=== PATIENT | female | born 1995 | race Caucasian/White ===

== ENCOUNTER 2018-01-05 16:48 | Outpatient (CLI) | payer MEDICAID ==
[2018-01-05 19:24] LABS: ADD UMIC NO; UR ASCORBIC ACID 40 mg/dL (NEGATIVE); UR BILIRUBIN (Dip) NEGATIVE (NEGATIVE); UR BLOOD (Dip) NEGATIVE (NEGATIVE); UR CLARITY CLEAR (CLEAR); UR COLOR YELLOW (YELLOW); UR GLUCOSE (Dip) NEGATIVE (NEGATIVE); UR KETONES (Dip) 2+ mg/dL (NEGATIVE); UR LEUKOCYTE ESTERASE (Dip) NEGATIVE Leu/ul (NEGATIVE); UR NITRITE (Dip) NEGATIVE (NEGATIVE); UR TOTAL PROTEIN (Dip) NEGATIVE (NEGATIVE); UR UROBILINOGEN (Dip) NEGATIVE (NEGATIVE)
== END 2018-01-05 20:15 | disposition home or self-care (01) ==
LOC: OBT 16:48 → L-D 16:49 → OBT 20:15
DX: O36.8130 Decreased fetal movements, third trimester, not applicable or unspecified (principal); Z3A.33 33 weeks gestation of pregnancy
CPT/HCPCS: 76815; 76818; 81003

== ENCOUNTER 2018-02-16 16:59 | Inpatient (IN) | payer MEDICAID ==
[2018-02-16] MEDS ORDERED: BUTORPHANOL 1 MG INJ IV (17:30)
[2018-02-16] MEDS ORDERED: OXYTOCIN 30 UNITS/LR 500 ML IV ×2 (17:30)
[2018-02-16] MEDS ORDERED: CARBOPROST 250 MCG INJ IM (17:30)
[2018-02-16] MEDS ORDERED: MISOPROSTOL 200 MCG TAB PR (17:30)
[2018-02-16] MEDS ORDERED: BUTORPHANOL 2 MG INJ IV (17:30)
[2018-02-16] MEDS ORDERED: LIDOCAINE 1% (MPF) 30 ML INJ INJ (17:30)
[2018-02-16] MEDS ORDERED: IBUPROFEN 600 MG TAB PO (17:30)
[2018-02-16] MEDS: LACTATED RINGER'S 1,000 ML IV (17:54)
[2018-02-16 18:35] LABS: ADD MAN DIFF? NO
[2018-02-16 18:40] LABS: WHITE BLOOD COUNT 10.5 10^3/ul (4.8-10.8)
[2018-02-16 18:40] LABS: BASOPHILS % 0.3 % (0.0-2.0); EOSINOPHILS # 0.1 10^3/ul (0.0-0.5); EOSINOPHILS % 0.8 % (0.0-7.0); HEMATOCRIT 39.3 % (37.0-47.0); HEMOGLOBIN 12.9 g/dl (12.0-16.0); LYMPHOCYTES # 3.5 10^3/ul (0.8-2.9); LYMPHOCYTES % 33.3 % (15.0-51.0); MEAN CORPUSCULAR HEMOGLOBIN 25.8 pg (29.0-33.0); MEAN CORPUSCULAR HGB CONC 32.8 g/dl (32.0-37.0); MEAN CORPUSCULAR VOLUME 78.6 fl (82.0-101.0); MEAN PLATELET VOLUME 12.2 fl (7.4-10.4); MONOCYTE # 0.9 10^3/ul (0.3-0.9); MONOCYTES % 8.4 % (0.0-11.0); NEUTROPHILS % 56.7 % (39.0-77.0); PLATELET COUNT 283 10^3/UL (140-415); RED CELL DISTRIBUTION WIDTH 13.3 % (11.5-14.5)
[2018-02-16 19:05] LABS: INR 0.85; PROTIME 11.7 Sec (11.9-14.9); PT RATIO 0.9
[2018-02-16 19:06] LABS: PARTIAL THROMBOPLASTIN TIME 26.9 Sec (23.0-35.0)
[2018-02-16 19:21] LABS: GLUCOSE 112 mg/dl (70-220)
[2018-02-16 19:44] LABS: HEPATITIS B SURFACE ANTIGEN NEGATIVE (NEGATIVE)
[2018-02-16] MEDS: OXYTOCIN 30 UNITS/LR 500 ML IV (22:31)
[2018-02-17] MEDS: LACTATED RINGER'S 1,000 ML IV ×5 (01:07→22:38)
[2018-02-17] MEDS: DEXTROSE 5%-LR 1,000 ML IV ×4 (06:45→14:27)
[2018-02-17] MEDS ORDERED: FENTAnyl 2MCG/ML-ROPIV 0.2% 100 ML (13:53)
[2018-02-17 17:10] LABS: RAPID PLASMA REAGIN NONREACTIVE (NR)
[2018-02-17] MEDS: OXYTOCIN 30 UNITS/LR 500 ML IV (19:48)
[2018-02-17] MEDS: FENTAnyl 2MCG/ML-ROPIV 0.2% 100 ML BAG EPI (21:14)
[2018-02-17] MEDS ORDERED: NALOXONE (0.4 MG/ML) INJ IV (21:30)
[2018-02-18] MEDS: FENTAnyl 2MCG/ML-ROPIV 0.2% 100 ML BAG EPI (05:09)
[2018-02-18] MEDS: LACTATED RINGER'S 1,000 ML IV ×4 (06:45→23:39)
[2018-02-18] MEDS: DEXTROSE 5%-LR 1,000 ML IV ×2 (06:45→10:53)
[2018-02-18] MEDS: ONDANSETRON 4 MG INJ IV (07:29)
[2018-02-18] MEDS: METHYLERGONOVINE 0.2 MG INJ IM (08:17)
[2018-02-18] MEDS: OXYTOCIN 30 UNITS/LR 500 ML IV ×2 (08:24→12:01)
[2018-02-18] MEDS ORDERED: CEFAZOLIN 2 GM/50 ML (PMX) 50 ML IVPB (09:32)
[2018-02-18] MEDS ORDERED: ACETAMINOPHEN 325 MG TAB (09:32)
[2018-02-18] MEDS: CEFAZOLIN 2 GM/50 ML (PMX) 50 ML IVPB (09:35)
[2018-02-18] MEDS: ACETAMINOPHEN 325 MG TAB PO (09:35)
[2018-02-18] MEDS: OXYCODONE/ACETAMINOPHEN (5/325) TAB PO (10:15)
[2018-02-18] MEDS ORDERED: CARBOPROST 250 MCG INJ IM (11:30)
[2018-02-18] MEDS ORDERED: ZOLPIDEM 5 MG TAB PO (11:30)
[2018-02-18] MEDS ORDERED: OXYTOCIN 30 UNITS/LR 500 ML IV (11:30)
[2018-02-18] MEDS ORDERED: NACL 0.9% 3 ML SYG IV (11:30)
[2018-02-18] MEDS ORDERED: METHYLERGONOVINE 0.2 MG INJ IM (11:30)
[2018-02-18] MEDS ORDERED: SENNA/DOCUSATE NA (8.6MG/50MG) TAB PO (11:30)
[2018-02-18] MEDS ORDERED: MISOPROSTOL 200 MCG TAB PR (11:30)
[2018-02-18] MEDS ORDERED: OXYCODONE/ASPIRIN (4.88/325) TAB PO (11:30)
[2018-02-18] MEDS: IBUPROFEN 600 MG TAB PO ×3 (11:59→23:41)
[2018-02-18] MEDS ORDERED: ACETAMINOPHEN 325 MG TAB PO (12:00)
[2018-02-18] MEDS: AMPICILLIN 2 GM/NS (PMX) 100 ML IVPB ×3 (12:53→23:39)
[2018-02-18] MEDS: CLINDAMYCIN 900 MG/D5W (PMX) 50 ML IVPB (14:19)
[2018-02-18] MEDS: GENTAMICIN 80 MG/NS (PMX) 50 ML IVPB ×2 (14:19→21:29)
[2018-02-18] MEDS: BENZOCAINE 20% 56 ML SPRAY TOP (14:24)
[2018-02-18] MEDS: WITCH HAZEL/GLYCERIN PAD PR (14:24)
[2018-02-18] MEDS: LANOLIN HPA 1 PKT TOP (14:24)
[2018-02-18] MEDS: MAGNESIUM HYDROXIDE 30ML CUP PO (21:29)
[2018-02-18] MEDS: SENNA/DOCUSATE NA (8.6MG/50MG) TAB PO (21:29)
[2018-02-19] MEDS: CLINDAMYCIN 900 MG/D5W (PMX) 50 ML IVPB ×2 (01:56→14:20)
[2018-02-19] MEDS: IBUPROFEN 600 MG TAB PO ×4 (05:43→23:35)
[2018-02-19] MEDS: GENTAMICIN 80 MG/NS (PMX) 50 ML IVPB ×3 (05:43→21:48)
[2018-02-19] MEDS: AMPICILLIN 2 GM/NS (PMX) 100 ML IVPB ×4 (06:39→23:35)
[2018-02-19 06:45] LABS: ADD MAN DIFF? NO
[2018-02-19 06:50] LABS: BASOPHIL # 0.1 10^3/ul (0.0-0.1); BASOPHILS % 0.3 % (0.0-2.0); EOSINOPHILS # 0.2 10^3/ul (0.0-0.5); EOSINOPHILS % 1.3 % (0.0-7.0); HEMATOCRIT 29.5 % (37.0-47.0); HEMOGLOBIN 9.7 g/dl (12.0-16.0); LYMPHOCYTES # 3.6 10^3/ul (0.8-2.9); LYMPHOCYTES % 24.7 % (15.0-51.0); MEAN CORPUSCULAR HEMOGLOBIN 26.4 pg (29.0-33.0); MEAN CORPUSCULAR HGB CONC 32.9 g/dl (32.0-37.0); MEAN CORPUSCULAR VOLUME 80.4 fl (82.0-101.0); MEAN PLATELET VOLUME 11.9 fl (7.4-10.4); MONOCYTE # 1.2 10^3/ul (0.3-0.9); NEUTROPHIL # 9.4 10^3/ul (1.6-7.5); NEUTROPHILS % 65.2 % (39.0-77.0); PLATELET COUNT 226 10^3/UL (140-415); RED BLOOD COUNT 3.67 10^6/ul (4.20-5.40); RED CELL DISTRIBUTION WIDTH 13.3 % (11.5-14.5)
[2018-02-19 06:50] LABS: WHITE BLOOD COUNT 14.4 10^3/ul (4.8-10.8)
[2018-02-19] MEDS: LACTATED RINGER'S 1,000 ML IV ×2 (09:04→17:04)
[2018-02-19] MEDS: SENNA/DOCUSATE NA (8.6MG/50MG) TAB PO ×2 (10:54→21:49)
[2018-02-19] MEDS: MAGNESIUM HYDROXIDE 30ML CUP PO ×3 (12:02→21:00)
[2018-02-20] MEDS: LACTATED RINGER'S 1,000 ML IV (01:04)
[2018-02-20] MEDS: CLINDAMYCIN 900 MG/D5W (PMX) 50 ML IVPB (02:27)
[2018-02-20] MEDS: AMPICILLIN 2 GM/NS (PMX) 100 ML IVPB (05:37)
[2018-02-20] MEDS: IBUPROFEN 600 MG TAB PO (05:37)
[2018-02-20] MEDS: GENTAMICIN 80 MG/NS (PMX) 50 ML IVPB (06:56)
[2018-02-20] MEDS: MAGNESIUM HYDROXIDE 30ML CUP PO (09:00)
[2018-02-20] MEDS: DIPHTH/TET/ACEL PERTUSS (ADULT) 0.5 ML VIAL IM* (09:32)
[2018-02-20] MEDS: SENNA/DOCUSATE NA (8.6MG/50MG) TAB PO (09:52)
[2018-02-20] MEDS: LANOLIN HPA 1 PKT TOP (09:53)
[2018-02-20] MEDS: WITCH HAZEL/GLYCERIN PAD PR (09:53)
[2018-02-20] MEDS: BENZOCAINE 20% 56 ML SPRAY TOP (09:53)
== END 2018-02-20 15:03 | disposition home or self-care (01) | DRG 807 ==
LOC: PP1 02-18 11:08 → L-D 16:59
PROVIDERS: Obstetrics & Gynecology
PROC: 10E0XZZ Delivery of Products of Conception, External Approach (ICD-10-PCS; principal; 2018-02-17)
DX: O24.429 Gestational diabetes mellitus in childbirth, unspecified control (principal); Z37.0 Single live birth; Z3A.39 39 weeks gestation of pregnancy
CPT/HCPCS: 62319; 76815; 82947; 82962; 85025; 85610; 85730; 86592; 86850; 86900; 86901; 87040; 87086; 87340